=== PATIENT | male | born 1995 | race Two or more races ===

== ENCOUNTER 2017-03-10 16:15 | Emergency (ER) | payer OTHER ==
[2017-03-10 16:38] VITALS: BP 171/102
--- NOTE | 2017-03-10 16:51 | ER Document Report ---
ED Medical Screen (RME) - General Chief Complaint: Laceration Stated Complaint: THUMB LACERATION Time Seen by Provider: 03/10/17 16:49 Notes: Patient cut his left thumb, volar pad of the distal portion of the left thumb with a sharp blade at work today. He has a 2-3 cm laceration which will require sutures. No other injuries. Patient's last tetanus shot was about 4 years ago, so he is up-to-date. Patient is right-hand dominant. - Related Data Allergies/Adverse Reactions: No Known Allergies Allergy (Verified 03/10/17 16:40) Past Medical History - Social History Chew tobacco use (# tins/day): Yes Frequency of alcohol use: daily (1/2 bottle) Drug Abuse: Other - Past Medical History Cardiac Medical History: Reports: Hx Hypertension Renal/ Medical History: Denies: Hx Peritoneal Dialysis Physical Exam - Vital signs Vitals: Temp Pulse Resp BP Pulse Ox 98.5 F 99 20 171/102 H 99 03/10/17 16:37 03/10/17 16:37 03/10/17 16:37 03/10/17 16:37 03/10/17 16:37 Course - Vital Signs Vital signs: Temp Pulse Resp BP Pulse Ox 98.5 F 99 20 171/102 H 99 03/10/17 16:37 03/10/17 16:37 03/10/17 16:37 03/10/17 16:37 03/10/17 16:37
[2017-03-10] MEDS ORDERED: LIDOCAINE 1% INJ-PF (10 MG/ML) 30 ML SDV INJ ONE (17:03)
[2017-03-10] MEDS ORDERED: DIPH/PERTUSS(ACELL)/TETANUS VAC/PF 0.5 ML SYR (>=10YO) IM ONE (17:03)
--- NOTE | 2017-03-10 18:17 | ER Document Report ---
HPI - HPI Onset: Just prior to arrival Onset/Duration: Sudden Quality of pain: Achy Pain Level: 3 Context: cut finger on razor today tetanus not UTD sensation ond motor function intact - CARDIOVASCULAR Cardiovascular: DENIES: Chest pain - DERM Skin Color: Normal Past Medical History - Social History Smoking Status: Current Some Day Smoker Chew tobacco use (# tins/day): Yes Frequency of alcohol use: daily (1/2 bottle) Drug Abuse: Other Family History: Reviewed & Not Pertinent Patient has suicidal ideation: No Patient has homicidal ideation: No - Past Medical History Cardiac Medical History: Reports: Hx Hypertension Renal/ Medical History: Denies: Hx Peritoneal Dialysis Vertical Provider Document - CONSTITUTIONAL Agree With Documented VS: Yes Exam Limitations: No Limitations General Appearance: WD/WN, No Apparent Distress - RESPIRATORY O2 Sat by Pulse Oximetry: 99 - CARDIOVASCULAR Pulses: Normal: Radial Notes: cap refill < 2 seconds - MUSCULOSKELETAL/EXTREMETIES Musculoskeletal/Extremeties: MAEW, FROM, Tender - at laceration, No Edema - NEURO Level of Consciousness: Awake, Alert, Appropriate Motor/Sensory: No Motor Deficit, No Sensory Deficit - DERM Integumentary: Warm, Dry, No Rash, Laceration - laceration measuring 3.5 cm past dermis involving fat, no bleeding ROM intact. no tendon deficit/injury Course - Re-evaluation Re-evalutation: 03/10/17 21:26 Patient is a 22-year-old male who is hemodynamic stable, no distress afebrile. Laceration irrigated and soaked in Betadine with saline, closed with 5 6-0 nylon suture. Patient tolerated the procedure well. Instruction to follow-up with primary care returns emergency room in 8-14 days for suture removal. Patient stable for discharge home - Vital Signs Vital signs: Temp Pulse Resp BP Pulse Ox 98.5 F 99 20 171/102 H 99 03/10/17 16:37 03/10/17 16:37 03/10/17 16:37 03/10/17 16:37 03/10/17 16:37 Procedures - Laceration/Wound Repair Left Wound length (cm): 3.5 Wound's Depth, Shape: Linear Laceration pre-procedure: Sterile PPE donned, Betadine prep applied, Sterile drapes applied Anesthetic type: 1% Lidocaine Volume Anesthetic (mLs): 7 - digital block Wound explored: Clean, No foreign body removed Wound Repaired With: Sutures Suture Size/Type: 6:0, Nylon Number of Sutures: 5 Layer Closure?: No Post-procedure wound care: Sterile dressing applied Post-procedure NV exam normal: Yes Complications: No Discharge - Discharge Clinical Impression: Laceration Condition: Good Disposition: HOME, SELF-CARE Instructions: Antibiotic Ointment Protection ([facility]), Laceration Care ([facility]), Tetanus Immunization Given ([facility]), Soap Cleansing ([facility]), Oral Narcotic Medication ([facility]), Use of [id number]-Suppnwu Ibuprofen ([facility]) Additional Instructions: Return to the emergency department or see your primary care provider to have your sutures removed in 8-14 days. Forms: Return to Work Referrals: LUIS PAGAN MD [ACTIVE STAFF] - Follow up as needed
[2017-03-10] MEDS ORDERED: HYDROCODONE/ACETAMINOPHEN 5-325 MG 6 TAB/DSPK PO PRN (18:30)
== END 2017-03-10 19:04 | disposition home or self-care (01) ==
LOC: ER 16:15
PROC: 0HQGXZZ Repair Left Hand Skin, External Approach (ICD-10-PCS; principal; 2017-03-10)
DX: S61.012A Laceration without foreign body of left thumb without damage to nail, initial encounter (principal); W45.8XXA Other foreign body or object entering through skin, initial encounter; Y99.0 Civilian activity done for income or pay; F17.200 Nicotine dependence, unspecified, uncomplicated; I10 Essential (primary) hypertension
CPT/HCPCS: 99282; 90471; 90715; 12002; J3490